=== PATIENT | male | born 1990 | race Caucasian/White ===

== ENCOUNTER 2020-07-31 09:01 | Emergency (ER) | payer SELFPAY ==
[~2020-07-31] VITALS: Ht 185.4 cm; Wt 81.6 kg
[~2020-07-31 09:01] MED LIST: RISP1TAB45 PO; SERT25TA PO
[2020-07-31] MEDS ORDERED: EPINEPHRINE 1 MG/ML, 1ML ONE (09:24)
[2020-07-31] MEDS ORDERED: EPINEPHRINE 1 MG/ML, 1ML IM ONE (09:30)
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
--- NOTE | 2020-07-31 09:36 | NUR ---
PT MEDICATED PER EMAR.
[2020-07-31 09:37] VITALS: BP 145/72
--- NOTE | 2020-07-31 09:47 | NUR ---
Patient given discharge instructions and they have confirmed that they understand the instructions. Patient ambulatory with steady gait.
== END 2020-07-31 09:47 | disposition home or self-care (01) ==
LOC: ED 09:35
DX: T78.3XXA Angioneurotic edema, initial encounter (principal)
CPT/HCPCS: 96372; 99283; J0171

== ENCOUNTER 2020-08-06 08:55 | Emergency (ER) | payer SELFPAY ==
[~2020-08-06] VITALS: Ht 182.9 cm; Wt 83.5 kg
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
[2020-08-06] MEDS ORDERED: SODIUM CHLORIDE FLUSH 10ML SYR IVF ONE (10:00)
--- NOTE | 2020-08-06 10:10 | NUR ---
PT CHART REVIEWED AND PLACED FOR RECHECK.
[2020-08-06 10:16] VITALS: BP 120/92
[2020-08-06] MEDS ORDERED: OMNIPAQUE 350 MG/ML, 100ML BOTTLE ONE (10:52)
== END 2020-08-06 10:57 | disposition home or self-care (01) ==
LOC: ED 10:27
DX: S30.1XXA Contusion of abdominal wall, initial encounter (principal); F17.210 Nicotine dependence, cigarettes, uncomplicated; V27.0XXA Motorcycle driver injured in collision with fixed or stationary object in nontraffic accident, initial encounter; Y93.89 Activity, other specified; Y92.828 Other wilderness area as the place of occurrence of the external cause; Y99.8 Other external cause status
CPT/HCPCS: 74177; 99285; 99406; Q9967; 99284